=== PATIENT | male | born 1995 ===

== ENCOUNTER 2018-09-02 10:11 | Emergency (ER) | payer OTHER, SELFPAY ==
[2018-09-02 10:30] VITALS: BP 125/67
[2018-09-02] MEDS ORDERED: IBUPROFEN PO ONE (10:41)
[2018-09-02] MEDS ORDERED: ULTRAM PO ONE (10:41)
[2018-09-02 11:57] LABS: Bacteria,Urine 1+ /HPF (Negative); Bilirubin,Urine NEG (Negative); Blood,Urine NEG (Negative); Color,Urine Yellow (Yellow); Mucus,Urine 3+ /HPF; Protein,Urine <15 mg/dL mg/dL (Negative); Urobilinogen,Urine < 2.0 mg/dL (<2.0)
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
== END 2018-09-02 13:01 | disposition home or self-care (01) ==
LOC: ED 10:11
DX: S39.012A Strain of muscle, fascia and tendon of lower back, initial encounter (principal); S00.81XA Abrasion of other part of head, initial encounter; V29.09XA Motorcycle driver injured in collision with other motor vehicles in nontraffic accident, initial encounter; Y93.89 Activity, other specified; Y92.488 Other paved roadways as the place of occurrence of the external cause; Y99.8 Other external cause status
CPT/HCPCS: 70450; 70486; 72100; 81001; 99284